=== PATIENT | male | born 1960 | race Caucasian/White ===

== ENCOUNTER 2016-12-26 20:38 | Emergency (ER) | payer BC ==
[~2016-12-26] VITALS: Ht 177.8 cm; Wt 81.6 kg
[2016-12-26 20:52] VITALS: BP_SYST 114
[2016-12-27] MEDS ORDERED: LIDOCAINE 1% 10 MG/ML, 20 ML MDV IJ ONE (02:00)
[2016-12-27] MEDS ORDERED: BACITRACIN 1 GM OINT TP ONE (02:53)
[2016-12-27] MEDS ORDERED: ceFAZolin SODIUM 1 GM VIAL IM ONE (03:00)
[2016-12-27 03:18] VITALS: BP_SYST 119
== END 2016-12-27 03:18 | disposition home or self-care (01) ==
LOC: SED 20:38
DX: S61.214A Laceration without foreign body of right ring finger without damage to nail, initial encounter (principal); W22.8XXA Striking against or struck by other objects, initial encounter; Y93.89 Activity, other specified; Y92.89 Other specified places as the place of occurrence of the external cause; Y99.8 Other external cause status
CPT/HCPCS: 12002; 73140; 96372; 99284; J0690; J2001